=== PATIENT | female | born 1960 | race Caucasian/White ===

== ENCOUNTER 2023-01-06 16:25 | Emergency (ER) | payer OTHER, SELFPAY ==
[2023-01-06 16:27] VITALS: BP 132/57; PULSE 96; RESP 16; TEMP 36.8; O2SAT 96; BMI 19.7
--- NOTE | 2023-01-06 17:00 | XRR_ITS ---
PROCEDURE INFORMATION: Exam: XR Right Forearm Exam date and time: 01/06/2023 5:27 PM Age: 62 years old Clinical indication: Injury or trauma; Fall; Blunt trauma (contusions or hematomas); Arm, lower; Right TECHNIQUE: Imaging protocol: Radiologic exam of the right forearm. Views: 2 views. COMPARISON: No relevant prior studies available. FINDINGS: Bones/joints: Normal. Soft tissues: Normal. XR/XR forearm RT 2V [id number] IMPRESSION: No acute findings.
--- NOTE | 2023-01-06 17:04 | XRR_ITS ---
PROCEDURE INFORMATION: Exam: XR Left Forearm Exam date and time: 01/06/2023 5:25 PM Age: 62 years old Clinical indication: Injury or trauma; Fall; Blunt trauma (contusions or hematomas); Arm, lower; Left; Additional info: Injury prev FX TECHNIQUE: Imaging protocol: Radiologic exam of the left forearm. Views: 2 views. COMPARISON: No relevant prior studies available. FINDINGS: Bones/joints: Linear lucency along the anterior aspect of the midshaft of the left ulna may represent a nutrient foramen the a nondisplaced fracture can not be excluded. This is seen on only one view. Correlate clinically. Comminuted displaced fracture of the distal left radial metaphysis. Soft tissues: Normal. Other findings: Overlying cast material. XR/XR forearm LT 2V [id number] IMPRESSION: 1. Linear lucency along the anterior aspect of the midshaft of the left ulna may represent a nutrient foramen the a nondisplaced fracture can not be excluded. This is seen on only one view. Correlate clinically. 2. Comminuted displaced fracture of the distal left radial metaphysis. 3. Overlying cast material.
--- NOTE | 2023-01-06 18:49 | DCPLANNER ---
Referral was sent to ortho on 01/06/23 at [id number]. Clinic to contact patient
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
== END 2023-01-06 18:20 | disposition home or self-care (01) ==
PROVIDERS: Emergency Provider Physician Assistant
DX: S52.592A Other fractures of lower end of left radius, initial encounter for closed fracture (principal); W18.39XA Other fall on same level, initial encounter
CPT/HCPCS: 73090; 99283

== ENCOUNTER → 2023-01-10 09:11 | Outpatient (BNVA) | payer OTHER, SELFPAY | PROVIDERS: Referring Provider Physician Assistant; Visit Provider Student in an Organized Health Care Education/Training Program | DX: S52.502A Unspecified fracture of the lower end of left radius, initial encounter for closed fracture; V49.9XXA Car occupant (driver) (passenger) injured in unspecified traffic accident, initial encounter | CPT/HCPCS: 73090; 73110 ==

== ENCOUNTER 2023-03-05 16:14 | Emergency (ER) | payer OTHER, SELFPAY ==
[2023-03-05 16:17] VITALS: BP 145/72; PULSE 96; RESP 18; TEMP 36.8; O2SAT 97; BMI 20.2
[2023-03-05 17:17] LABS: Basophils # 0.1 10^3/uL (0.0-0.1); Basophils % 0.6 %; Eosinophils # 0.2 10^3/uL (0.0-0.8); Hematocrit 41.2 % (36-47); Lymphocytes # 2.4 10^3/uL (0.8-4.8); Mean Corpuscular Hemoglobin 28.5 pg (27-33); Mean Corpuscular Volume 86.4 fl (85-98); Mean Platelet Volume 8.6 fL (7.4-10.4); Monocytes # 0.5 10^3/uL (0.2-0.9); Monocytes % 5.6 %; Neutrophils # 5.22 10^3/uL (1.8-7.7); Neutrophils % 62.7 %; Nucleated Red Blood Cells % 0 %; Platelet Count 344 10^3/cmm (157-399); Red Blood Count 4.77 10^6/uL (3.85-5.65); Red Cell Distribution Width 12.4 % (12.1-15.1); White Blood Count 8.34 10^3/uL (3.29-11.43)
--- NOTE | 2023-03-05 17:28 | ED_ITS ---
HPI - Back Pain/Injury 2 General: Chief Complaint: Back Pain/Injury Stated Complaint: lower back pains, left arm pains Time Seen by Provider: 03/05/23 17:27 Source: patient Mode of arrival: ambulatory History of Present Illness: MD elicited complaint: back pain Associated symptoms: Deny abdominal pain, chills, dysuria, fever(s) or urinary urgency Review of Systems 2 Const: Denies: fever(s) or chills Card: Denies: chest pain Resp: Denies: dyspnea GI: Denies: abdominal pain : Denies: dysuria, urinary frequency or urinary urgency Musc: Denies: neck pain or back pain Skin/Breast: Denies: rash PFSH ED 2 PFSH: Social History Smoking and tobacco/nicotine status: current every day tobacco/nicotine user Alcohol intake: never Physical Exam 2 Const: GENERAL APPEARANCE: cooperative and comfortable O RIENTATION/CONSCIOUSNESS: Yes awake, Yes oriented to person, Yes oriented to place and Yes oriented to time HENMT: COMMON NORMALS: normocephalic, atraumatic and hearing grossly normal bilaterally HEAD & SCALP: normocephalic and atraumatic Resp: COMMON NORMALS: normal respiratory effort, No retractions, No use of accessory muscles and clear to auscultation bilaterally AUSCULTATION: clear to auscultation bilaterally Cardio: COMMON NORMALS: regular rate, regular rhythm and No murmurs present (Cardio) RATE: regular rate RHYTHM: regular rhythm GI: COMMON NORMALS: Soft to palpation and No hepatosplenomegaly present A USCULTATION: Yes normoactive bowel sounds PALPATION: Yes Soft to palpation, No Tenderness to palpation present (GI), No Guarding due to palpation present (GI) and Yes No hepatosplenomegaly present Extremity: COMMON NORMALS: normal to inspection, capillary refill normal, no clubbing, cyanosis or edema, no calf tenderness and no pedal edema Neuro: SENSORIUM/ORIENTATION: Yes oriented to person, Yes oriented to place and Yes oriented to time Skin: COMMON NORMALS: no rashes or lesions noted GENERAL SKIN EXAM: no rashes or lesions noted Course 2 Vital Signs: Vital signs: Vital Signs Temperature 98.3 F 03/05/23 16:17 Pulse Rate 96 03/05/23 16:17 Respiratory Rate 18 03/05/23 16:17 Blood Pressure 145/72 03/05/23 16:17 Pulse Oximetry 97 03/05/23 16:17 Oxygen Delivery Me thod Room Air 03/05/23 16:17 MDM - Back Pain/Injury Labs 03/05/23 17:05 03/05/23 17:05 Laboratory Results WBC 8.34 10^3/uL (3.29-11.43) 03/05/23 17:05 RBC 4.77 10^6/uL (3.85-5.65) 03/05/23 17:05 Hgb 13.60 g/dL (11.27-16.99) 03/05/23 17:05 Hct 41.2 % (36-47) 03/05/23 17:05 MCV 86.4 fl (85-98) 03/05/23 17:05 MCH 28.5 pg (27-33) 03/05/23 17:05 MCHC 33.0 g/dL (30-55) 03/05/23 17:05 RDW 12.4 % (12.1-15.1) 03/05/23 17:05 Plt Count 344 10^3/cmm (157-399) 03/05/23 17:05 MPV 8.6 fL (7.4-10.4) 03/05/23 17:05 Neut % (Auto) 62.7 % 03/05/23 17:05 Lymph % (Auto) 29.0 % 03/05/23 17:05 [place] % (Auto) 5.6 % 03/05/23 17:05 Eos % (Auto) 2.0 % 03/05/23 17:05 Baso % (Auto) 0.6 % 03/05/23 17:05 Neut # (Auto) 5.22 10^3/uL (1.8-7.7) 03/05/23 17:05 Lymph # (Auto) 2.4 10^3/uL (0.8-4.8) 03/05/23 17:05 [place] # (Auto) 0.5 10^3/uL (0.2-0.9) 03/05/23 17:05 Eos # (Auto) 0.2 10^3/uL (0.0-0.8) 03/05/23 17:05 Baso # (Auto) 0.1 10^3/uL (0.0-0.1) 03/05/23 17:05 Nucleated RBC % (auto) 0 % 03/05/23 17:05 Nucleated RBCs # 0.0 /100WBC 03/05/23 17:05 Discharge Plan Discharge Condition: Stable Prescriptions: No Action naproxen sodium [Aleve] 220 mg capsule 220 mg PO BID PRN ibuprofen 200 mg capsule 200 mg PO Q6H PRN methadone 10 mg tablet 52 mg PO DAILY Coding Level of Care Code ED Process Inspector for Bettye Conte
[2023-03-05 17:35] LABS: Alanine Aminotransferase 15 U/L (0-33); Albumin Level 4.1 g/dL (3.5-5.2); Alkaline Phosphatase 66 U/L (35-105); Aspartate Amino Transferase 23 U/L (0-32); Blood Urea Nitrogen 11 mg/dL (8-23); Calcium 9.6 mg/dL (8.5-10.5); Carbon Dioxide 28 mmol/L (22-29); Chloride 100 mmol/L (98-107); Globulin 4.2 g/dL (1.3-4.6); Glucose 118 mg/dL (65-115); Lipase 51 U/L (13-60); Osmolality Calculated 288 mOsm/kg (285-295); Sodium 139 mmol/L (136-145); Total Protein 8.3 g/dL (6.6-8.7)
[2023-03-05 17:41] LABS: Anion Gap 14.7 (5-19); Potassium 3.7 mmol/L (3.5-5.1)
--- NOTE | 2023-03-05 18:01 | W.ED.BACK ---
HPI - Back Pain/Injury General: Chief Complaint: Back Pain/Injury Stated Complaint: lower back pains, left arm pains Time Seen by Provider: 03/05/23 17:27 History of Present Illness: Patient presented complaining of back pain she has no red initial medications ordered she refused these and left AMA before we could see her.. MD elicited complaint: back pain REPLACED BY [facility] ED PFSH: Social History Smoking and tobacco/nicotine status: current every day tobacco/nicotine user Alcohol intake: never Course Vital Signs: Vital signs: Vital Signs Temperature 98.3 F 03/05/23 16:17 Pulse Rate 96 03/05/23 16:17 Respiratory Rate 18 03/05/23 16:17 Blood Pressure 145/72 03/05/23 16:17 Pulse Oximetry 97 03/05/23 16:17 Oxygen Delivery Me thod Room Air 03/05/23 16:17 MDM - Back Pain/Injury Medical Decision Making Patient left AMA Labs 03/05/23 17:05 03/05/23 17:05 Laboratory Results WBC 8.34 10^3/uL (3.29-11.43) 03/05/23 17:05 RBC 4.77 10^6/uL (3.85-5.65) 03/05/23 17:05 Hgb 13.60 g/dL (11.27-16.99) 03/05/23 17:05 Hct 41.2 % (36-47) 03/05/23 17:05 MCV 86.4 fl (85-98) 03/05/23 17:05 MCH 28.5 pg (27-33) 03/05/23 17:05 MCHC 33.0 g/dL (30-55) 03/05/23 17:05 RDW 12.4 % (12.1-15.1) 03/05/23 17:05 Plt Count 344 10^3/cmm (157-399) 03/05/23 17:05 MPV 8.6 fL (7.4-10.4) 03/05/23 17:05 Neut % (Auto) 62.7 % 03/05/23 17:05 Lymph % (Auto) 29.0 % 03/05/23 17:05 [place] % (Auto) 5.6 % 03/05/23 17:05 Eos % (Auto) 2.0 % 03/05/23 17:05 Baso % (Auto) 0.6 % 03/05/23 17:05 Neut # (Auto) 5.22 10^3/uL (1.8-7.7) 03/05/23 17:05 Lymph # (Auto) 2.4 10^3/uL (0.8-4.8) 03/05/23 17:05 [place] # (Auto) 0.5 10^3/uL (0.2-0.9) 03/05/23 17:05 Eos # (Auto) 0.2 10^3/uL (0.0-0.8) 03/05/23 17:05 Baso # (Auto) 0.1 10^3/uL (0.0-0.1) 03/05/23 17:05 Nucleated RBC % (auto) 0 % 03/05/23 17:05 Nucleated RBCs # 0.0 /100WBC 03/05/23 17:05 Sodium 139 mmol/L (136-145) 03/05/23 17:05 Potassium 3.7 mmol/L (3.5-5.1) 03/05/23 17:05 Chloride 100 mmol/L (98-107) 03/05/23 17:05 Carbon Dioxide 28 mmol/L (22-29) 03/05/23 17:05 Anion Gap 14.7 (5-19) 03/05/23 17:05 BUN 11 mg/dL (8-23) 03/05/23 17:05 Creatinine 0.5 mg/dL (0.5-0.9) 03/05/23 17:05 GFR Calculation 125.0 mL/min (90-130) 03/05/23 17:05 Glucose 118 mg/dL (65-115) H 03/05/23 17:05 Calculated Osmolality 288 mOsm/kg (285-295) 03/05/23 17:05 Calcium 9.6 mg/dL (8.5-10.5) 03/05/23 17:05 Total Bilirubin 1.0 mg/dL (0.15-1.2) 03/05/23 17:05 AST 23 U/L (0-32) 03/05/23 17:05 ALT 15 U/L (0-33) 03/05/23 17:05 Alkaline Phosphatase 66 U/L (35-105) 03/05/23 17:05 Total Protein 8.3 g/dL (6.6-8.7) 03/05/23 17:05 Albumin 4.1 g/dL (3.5-5.2) 03/05/23 17:05 Globulin 4.2 g/dL (1.3-4.6) 03/05/23 17:05 Lipase 51 U/L (13-60) 03/05/23 17:05 No radiology studies performed this visit Discharge Plan Discharge Patient Disposition: Left Against Medical Advice Condition: Stable Prescriptions: No Action naproxen sodium [Aleve] 220 mg capsule 220 mg PO BID PRN ibuprofen 200 mg capsule 200 mg PO Q6H PRN methadone 10 mg tablet 52 mg PO DAILY Coding Level of Care Code ED Manager [employer] for Bettye Conte
== END 2023-03-05 18:02 | disposition left against medical advice (07) ==
PROVIDERS: Nurse Practitioner Family; Emergency Provider Family Medicine
DX: M54.50 Low back pain, unspecified (principal); Z53.29 Procedure and treatment not carried out because of patient's decision for other reasons; Z72.0 Tobacco use
CPT/HCPCS: 36415; 80053; 83690; 85025; 99284